=== PATIENT | female | born 1990 | race Caucasian/White ===

== ENCOUNTER 2023-10-15 20:34 | Emergency (ER) | payer BC ==
[~2023-10-15] VITALS: Ht 157.5 cm; Wt 54.5 kg
[2023-10-15 20:59] VITALS: BP 118/72; PULSE 96; TEMP 98; O2SAT 98
[2023-10-15] MEDS ORDERED: HYDR-3973 PO (21:26)
[2023-10-15] MEDS ORDERED: LIDO28.35 TOP (21:26)
[2023-10-15] MEDS ORDERED: SULF1TAB49 PO (21:26)
[2023-10-15 21:33] VITALS: RESP 16
[2023-10-15] MEDS: HYDROcodone/acetaminophen 10/325mg tab PO ONE (21:33)
[2023-10-15] MEDS: ondansetron 4mg rapidly disintigrating tab PO ONE (21:34)
[2023-10-15] MEDS: CefTRIAXone 1000mg IM Kit (w/lidocaine diluent) IM ONE (21:35)
== END 2023-10-15 21:41 | disposition home or self-care (01) ==
LOC: ER 20:34
DX: S31.40XA Unspecified open wound of vagina and vulva, initial encounter (principal); N75.1 Abscess of Bartholin's gland; X58.XXXA Exposure to other specified factors, initial encounter; Y93.89 Activity, other specified; Y92.89 Other specified places as the place of occurrence of the external cause; Y99.8 Other external cause status
CPT/HCPCS: 96372; 99284; J0696

== ENCOUNTER 2024-04-27 12:12 | Emergency (ER) | payer BC, MEDICAID ==
[~2024-04-27] VITALS: Ht 157.5 cm; Wt 47.7 kg
[~2024-04-27 12:12] MED LIST: LIDO28.35 TOP
[2024-04-27] MEDS: normal saline 1000ml 1,000 ML IV ONE (14:31)
[2024-04-27] MEDS: ketorolac trometh 15mg/ml vial 15 MG/ML ML IV ONE (15:13)
[2024-04-27] MEDS: ondansetron/PF 4mg/2ml inj IV ONE (15:13)
[2024-04-27] MEDS: HYDROcodone/acetaminophen 5mg/325mg tablet PO ONE (16:33)
[2024-04-27 16:38] LABS: BILIRUBIN,URINE NEGATIVE (Neg); CLARITY,URINE CLEAR (Clear); COLOR,URINE YELLOW (Yellow); GLUCOSE, URINE NEGATIVE (Neg); KETONES,URINE NEGATIVE (Neg); LEUKOCYTE ESTERASE ,URINE NEGATIVE (Neg); NITRITES, URINE NEGATIVE (Neg); OCCULT BLOOD,URINE NEGATIVE (Neg); PH,URINE 8.5 (4.8-8.0); PROTEIN,URINE NEGATIVE (Neg); UROBILINOGEN,URINE 0.2 E.U/dL (0.2-1.0)
[2024-04-27 17:04] LABS: UA COLLECTION TYPE CLN CATCH MIDSTREAM
[2024-04-27] MEDS ORDERED: IBUP-860 PO (17:29)
[2024-04-27] MEDS ORDERED: ONDA-245 PO (17:29)
[2024-04-27] MEDS ORDERED: HYDR-3965 PO (17:29)
[2024-04-27 17:48] VITALS: BP 101/62; PULSE 97; RESP 16; TEMP 100.1; O2SAT 99
== END 2024-04-27 17:52 | disposition home or self-care (01) ==
LOC: ER 12:13
DX: B34.9 Viral infection, unspecified (principal); Z20.822 Contact with and (suspected) exposure to COVID-19; Z88.6 Allergy status to analgesic agent; Z79.1 Long term (current) use of non-steroidal anti-inflammatories (NSAID)
CPT/HCPCS: 36415; 81003; 87502; 87503; 87811; 96361; 96374; 96375; 99284; J1885; J2405; J7030